=== PATIENT | female | born 1995 | race Two or more races ===

== ENCOUNTER 2023-07-27 00:20 | Emergency (ER) | payer MEDICAID, SELFPAY ==
[2023-07-27 00:28] VITALS: BP 118/81; PULSE 72; O2SAT 98
[2023-07-27 00:30] VITALS: BP 120/74; PULSE 72; RESP 18; TEMP 37.1; O2SAT 98; BMI 33.5
--- NOTE | 2023-07-27 00:39 | ECG_ITS ---
Test Reason : CHEST PAIN Blood Pressure : / mmHG Vent. Rate : 070 BPM Atrial Rate : 070 BPM P-R Int : 158 ms QRS Dur : 076 ms QT Int : 386 ms P-R-T Axes : 034 025 027 degrees QTc Int : 416 ms Normal sinus rhythm with sinus arrhythmia Normal ECG When compared with ECG of 15-OCT-2013 22:58, No significant change was found Referred By: Generic ED Physician Electronically Signed By:CRISTINE ELIAS
--- NOTE | 2023-07-27 00:44 | PC.NURSE ---
Pt reports a fever of 101 yesterday, no sick contact. Plan of care ongoing.
[2023-07-27 00:45] VITALS: BP 120/74; PULSE 69; RESP 12; TEMP 37.1; O2SAT 98
--- NOTE | 2023-07-27 00:50 | ED.CHESTPAIN ---
HPI - Chest Pain General Chief Complaint: Chest Pain Stated Complaint: CHEST PAIN Time Seen by Provider: 07/27/23 00:48 Source: patient Mode of arrival: ambulatory Limitations: no limitations History of Present Illness HPI narrative: Patient history of anxiety not feeling well for last few days thinking about her brother who was stabbed few months ago, increased anxiety lately, nonsmoker no diabetes or hypertension noticed headache for last 3 -4 days and not feeling well prior to arrival noticed sharp chest pain tonight while sitting asked her boyfriend to get some water felt lightheaded and passed out feel nauseated no vomiting headache is mostly on the right side with light sensitivity no history of migraines in the past no nausea no vomiting Related Data Previous Rx's Medication Instructions Recorded zwpgsnhvzw-yvxmlwmuctsqz-kvkqxopd 1 tab PO Q6H PRN haeadace #20 tabs 07/27/23 50 mg-325 mg-40 mg tablet lorazepam 1 mg tablet (Ativan) 1 mg PO BEDTIME PRN anxiety/sleep 07/27/23 #14 tabs Allergies Allergy/AdvReac Type Severity Reaction Status Date / Time aspirin [ASA] Allergy Intermediate HIVES Unverified 02/14/20 16:46 Review of Systems Review of Systems: Yes all other systems are reviewed and are negative [facility] Social History Social History Smoked in Last 30 Days: No Use of substances other than those prescribed or required for medical reasons: Yes Substance Use Type: Marijuana Advance Directives: No Advance Directives Information Provided: No Physical Exam Vital Signs: Vital Signs: Last Vital Signs Temp 98.8 F 07/27/23 00:45 Pulse 69 07/27/23 00:45 Resp 12 07/27/23 00:45 BP 120/74 07/27/23 00:45 Pulse Ox 98 07/27/23 00:45 O2 Del Method Room Air 07/27/23 00:45 BMI result Body Mass Index 33.5 Appearance: Alert. Oriented X3. No acute distress. Eyes: No pallor or icterus ENT: Pharynx normal. Oral Mucosa moist no temporal artery tenderness or scalp tenderness Neck: Normal inspection. Neck supple. CVS: Normal heart rate and rhythm. Pulses normal. Respiratory: No respiratory distress. Equal air entry bilateral, Abdomen: Soft and nontender. Bowel sounds are present, no mass palpable, Skin: Skin warm and dry. Normal skin color. Normal skin turgor. Extremities: No lower extremity edema. No calf tenderness Neuro: Oriented X 3. Medications Administered Discontinued Medications Generic Name Dose Route Start Last Admin Trade Name Freq PRN Reason Stop Dose Admin Acetaminophen/Butalbital/Caffeine 1 tab 07/27/23 01:59 07/27/23 02:10 Butalb/Acetamin/Caff 50/325/40 Tablet PO 07/27/23 02:00 1 tab ONCE ONE Administration Lorazepam 1 mg 07/27/23 01:59 07/27/23 02:10 Lorazepam 1 Mg Tablet PO 07/27/23 02:00 1 mg ONCE ONE Administration Medical Decision Making Medical Decision Making [facility] Narrative: Patient has atypical chest pain near-syncope episode likely from vasovagal low risk for PE low risk for coronary artery disease no family history of sudden that patient feel anxious and stressed out likely had vasovagal attack will check labs to r/o ACS Headache is likely migraine headache with light sensitivity and localized to the right side Differential Diagnosis Differential Diagnoses: The differential diagnosis associated with the presentation includes Lab Data [facility] Lab Attestation statement: I reviewed the patient's lab results. 07/27/23 00:50 07/27/23 00:50 Labs: Lab Results 07/27/23 07/27/23 07/27/23 Range/Units 00:50 02:09 02:10 WBC 9.0 (4.8-10.8) X10*3/uL RBC 4.59 (4.20-5.50) X10*6/uL Hgb 13.1 (12.0-16.0) g/dl Hct 38.9 (37.0-47.0) % MCV 84.7 (80.0-98.0) fL MCH 28.5 (27.0-33.0) pg MCHC 33.7 (31.0-35.0) g/dl RDW 12.6 (11.0-16.0) % Plt Count 189 (160-400) X10*3/uL MPV 10.6 (9.4-12.3) fL Immature Gran % (Auto) 0.1 (0.0-0.4) % Neut % (Auto) 57.1 (45-73) % Lymph % (Auto) 35.7 (20-40) % Eddy % (Auto) 6.2 (2-11) % Eos % (Auto) 0.6 (0-4) % Baso % (Auto) 0.3 (0-2) % Lymph # (Auto) 3.2 (1.2-4.9) X10*3/uL Eddy # (Auto) 0.6 (0.1-1.2) X10*3/uL Eos # (Auto) 0.1 (0.0-0.4) X10*3/uL Baso # (Auto) 0.0 (0.0-0.2) X10*3/uL Abs Immat Gran (auto) 0.01 (0.00-0.03) X10*3/uL Absolute Neuts (auto) 5.1 (2.0-8.3) x10*3/uL Absolute Nucleated RBC 0.000 (0.0-0.012) X10*3/uL Nucleated RBC % (auto) 0.0 (0.0-0.2) /100WBC Sodium 138 (135-145) mmol/L Potassium 3.7 (3.3-5.1) mmol/L Chloride 107 (96-108) mmol/L Carbon Dioxide 22 (22-29) mmol/L Anion Gap 13 (12-20) BUN 17 H (9-16) mg/dL Creatinine 0.73 (0.5-1.4) mg/dL Estim Creat Clear Calc 145.2 Estimated GFR > 60 Random Glucose 114 (60-115) mg/dL Calcium 9.5 (8.4-10.2) mg/dL Troponin I High Sens < 2.7 (<3.5-17.0) ng/L Urine Color Yellow Urine Appearance Clear Urine pH 6.0 (5.0-9.0) Ur Specific [place] >= 1.030 H (1.005-1.025) Urine Protein Negative (Neg-Trace) mg/dL Urine Glucose (UA) Negative (Negative) mg/dL Urine Ketones Trace (Negative) mg/dL Urine Blood Trace H (Negative) Urine Nitrite Negative (Negative) Ur Leukocyte Esterase Negative (Negative) Urine RBC 6-10 H (0-2) /HPF Urine WBC 0-5 (0-5) /HPF Ur Squamous Epith Cells 0-2 (0-2) /HPF Urine Bacteria None Seen (None Seen) Hyaline Casts 0-2 (0-2) /LPF Urine Test NEGATIVE (NEGATIVE) Independent Interpretation I performed an independent interpretation of an: EKG Interpretation: Normal sinus rhythm heart rate 70 beats per minute normal interval normal axis no acute ST T wave changes no ischemia Discharge Plan Discharge Clinical Impression: Atypical chest pain, Anxiety, Vasovagal syncope, Headache, migraine Patient Disposition: Home, Self-Care Instructions: Migraine Headache (ED), Syncope (ED), Noncardiac Chest Pain (ED), Anxiety (ED) Additional Instructions: Drink plenty of fluids Chest pain is not from the heart likely musculoskeletal Medicine for anxiety/sleep as prescribed Likely her migraine headache take medication as prescribed Prescriptions: New mopmwjixmb-pohyntbfwbcww-wodr 50-325-40 mg tablet 1 tab PO Q6H PRN (Reason: haeadace) Qty: 20 0RF lorazepam [Ativan] 1 mg tablet 1 mg PO BEDTIME PRN (Reason: anxiety/sleep) Qty: 14 0RF Interventions: ED Discharge Assessment Last Done: 07/27/23 02:37 Discharge Date/Time: 07/27/23 02:59
[2023-07-27 00:58] LABS: Basophils Percent Auto 0.3 % (0-2); Eosinophils Absolute Auto 0.1 X10*3/uL (0.0-0.4); Eosinophils Percent Auto 0.6 % (0-4); Hematocrit 38.9 % (37.0-47.0); Hemoglobin 13.1 g/dl (12.0-16.0); Imm Gran Abs Auto 0.01 X10*3/uL (0.00-0.03); Imm Gran Pct Auto 0.1 % (0.0-0.4); Lymphocytes Absolute Auto 3.2 X10*3/uL (1.2-4.9); Lymphocytes Percent Auto 35.7 % (20-40); MANUAL DIFF FLAG NO; Mean Corpuscular HGB Conc 33.7 g/dl (31.0-35.0); Mean Corpuscular Hemoglobin 28.5 pg (27.0-33.0); Mean Corpuscular Volume 84.7 fL (80.0-98.0); Mean Platelet Volume 10.6 fL (9.4-12.3); Monocytes Absolute Auto 0.6 X10*3/uL (0.1-1.2); Monocytes Percent Auto 6.2 % (2-11); Neutrophils Absolute Auto 5.1 x10*3/uL (2.0-8.3); Neutrophils Percent Auto 57.1 % (45-73); Platelet Count 189 X10*3/uL (160-400); Red Blood Count 4.59 X10*6/uL (4.20-5.50); Red Cell Distribution Width 12.6 % (11.0-16.0)
[2023-07-27 01:12] LABS: Anion Gap 13 (12-20); Blood Urea Nitrogen 17 mg/dL (9-16); Calcium 9.5 mg/dL (8.4-10.2); Carbon Dioxide 22 mmol/L (22-29); Chloride 107 mmol/L (96-108); Creatinine Clr Calc Pharmacy 145.2; Estimated Glomerular Filt Rate > 60; Glucose Random 114 mg/dL (60-115); Potassium 3.7 mmol/L (3.3-5.1); Sodium 138 mmol/L (135-145)
[2023-07-27 01:20] LABS: Troponin-I High Sensitivity < 2.7 ng/L (<3.5-17.0)
[2023-07-27] MEDS: Butalb/Acetamin/Caff 50/325/40 TABLET 1 TAB PO (02:10)
[2023-07-27] MEDS: LORazepam 1 MG TABLET PO (02:10)
--- NOTE | 2023-07-27 02:11 | PC.NURSE ---
Pt medicated per jul. Pts mom at bedside. Plan of care ongoing.
--- NOTE | 2023-07-27 02:14 | PC.NURSE ---
Pt requested and given water. Plan of care ongoing.
[2023-07-27 02:19] LABS: UPreg QC Valid YES; Urine Pregnancy NEGATIVE (NEGATIVE)
[2023-07-27 02:19] LABS: Appearance Urine Clear; Color Urine Yellow
[2023-07-27 02:20] LABS: Glucose Urine UA Negative (Negative); Leukocyte Esterase Urine Negative (Negative); Nitrite Urine Negative (Negative); Specific Gravity - Urine >= 1.030 (1.005-1.025); UMIC TRIGGER UACC YES; Urine Blood Trace (Negative); Urine Ketones Trace mg/dL (Negative); Urine Protein Negative (Neg-Trace)
[2023-07-27 02:22] LABS: Bacteria Urine None Seen (None Seen); Hyaline Casts Urine 0-2 /LPF (0-2); Squamous Epithelial Cell Urine 0-2 /HPF (0-2); WBC Urine 0-5 /HPF (0-5)
== END 2023-07-27 02:59 | disposition home or self-care (01) ==
PROVIDERS: Emergency Provider Internal Medicine
DX: R07.89 Other chest pain (principal); F41.9 Anxiety disorder, unspecified; R55 Syncope and collapse; G43.909 Migraine, unspecified, not intractable, without status migrainosus
CPT/HCPCS: 36415; 80048; 81001; 81025; 84484; 85025; 93005; 99283; 99285

== ENCOUNTER → 2023-07-27 00:39 | Outpatient (BNV) | payer MEDICAID, SELFPAY | PROVIDERS: Emergency Provider Internal Medicine; Visit Provider Internal Medicine | DX: R07.9 Chest pain, unspecified (principal) | CPT/HCPCS: 93010 ==

== ENCOUNTER 2024-12-09 20:09 | Emergency (ER) | payer MEDICAID, SELFPAY ==
--- NOTE | ~2024-12-09 | XR_ITS ---
CLINICAL HISTORY: trauma, pain 3 view left foot Comparison: None provided Findings: Bones intact. No dislocations. No arthritic change. No ankle effusion. No radiopaque foreign body. IMPRESSION: 1. No acute findings. This document has been electronically signed by: Denny Nino MD on 12/09/2024 21:23:32
[2024-12-09 20:26] VITALS: BP 110/70; PULSE 70; RESP 16; TEMP 36.7; O2SAT 100; BMI 35.5
--- NOTE | 2024-12-09 20:30 | ED.GENADULT ---
HPI - General Adult General Chief complaint: Extremity Injury, Lower Stated complaint: left foot in pain dumbbell fell on it Time Seen by Provider: 12/09/24 22:02 Source: patient Limitations: no limitations History of Present Illness ED Provider: Lizzeth Becker PA-C HPI narrative: 29-year-old female presents with left foot pain. Patient states a 5 lb dumbbell accidentally fell on her foot. Now with foot pain. Pain worse with walking. Related Data Previous Rx's ?Medication ?Instructions ?Recorded xitrzyskjk-efufeyqmqujfl-gdimfgnm 1 tab PO Q6H PRN haeadace #20 tabs 07/27/23 50 mg-325 mg-40 mg tablet lorazepam 1 mg tablet (Ativan) 1 mg PO BEDTIME PRN anxiety/sleep 07/27/23 #14 tabs Allergies Allergy/AdvReac Type Severity Reaction Status Date / Time aspirin (ASA) Allergy Intermediate HIVES Verified 12/09/24 20:28 Review of Systems Review of Systems: Yes all other systems are reviewed and are negative Constitutional: Constitutional: Denies fatigue and Denies fever(s) Musculoskeletal: Musculoskeletal: Reports arthralgias and Reports joint swelling Endocrine: Endocrine: Denies fatigue PMF Past Medical History Attestation statement: The following information was validated with the patient. Social History Social History Substance Use Type: Marijuana Advance Directives: No Advance Directives Information Provided: No Do you have a plan to hurt others: No Plan Physical Exam ED Vital Signs: Vital Signs - 24 hr 12/09/24 20:26 Temperature 98.1 F Pulse Rate 70 Respiratory Rate 16 Blood Pressure 110/70 Pulse Oximetry 100 Oxygen Delivery Method Room Air BMI result Body Mass Index 35.5 Const Other: Alert Orientation/consciousness: patient oriented x3 Resp Effort & Inspection: normal respiratory effort Cardio Other: Normal peripheral perfusion Skin Other: Warm dry no rash Neuro General: patient oriented x3, gait normal, no focal motor deficits and CN's II-XI intact bilaterally Extrem Other: Mild swelling over dorsum of the foot, no ecchymosis no deformity Psych Other: Calm and cooperative Course Course Course Narrative: Medical screening exam performed. Please refer to detailed history, exam, evaluation, and management by primary provider. 29-year-old female dropped a 5 lb dumbbell on her left foot over the 5th metatarsal. Medical Decision Making Medical Decision Making [facility] Narrative: 29-year-old female presents with left foot pain. Patient states a 5 lb dumbbell accidentally fell on her foot. Now with foot pain. Pain worse with walking. No chronic issues History: Per patient I have considered the following differential diagnoses: Fracture, dislocation, contusion, sprain Plan: X-ray ordere from triage it is negative. We will send with crutches. I have independently reviewed the following tests: X-ray left foot:Findings: Bones intact. No dislocations. No arthritic change. No ankle effusion. No radiopaque foreign body. IMPRESSION: 1. No acute findings. Discharge Plan Discharge Clinical Impression: Contusion of foot, left Patient Disposition: Home, Self-Care Instructions: Foot Contusion (ED), P.R.I.C.E. Treatment (ED) Additional Instructions: The x-ray of your foot was negative for fracture or dislocation, you have a contusion. See home care instructions. Bear weight as tolerated use the crutches to aid in ambulation. Follow up with primary care as needed. Prescriptions: No Action wqmpyggrab-fqrgbhuiobwyh-rbwt 50-325-40 mg tablet 1 tab PO Q6H PRN (Reason: haeadace) Qty: 20 0RF lorazepam [Ativan] 1 mg tablet 1 mg PO BEDTIME PRN (Reason: anxiety/sleep) Qty: 14 0RF Stand Alone Forms: Work/School Release Print Language: Estonian
[2024-12-09 22:46] VITALS: BP 135/86; PULSE 78; RESP 16; TEMP 36.7; O2SAT 99
== END 2024-12-09 22:48 | disposition home or self-care (01) ==
PROVIDERS: Emergency Provider Emergency Medicine; PCP Family Medicine
DX: S90.32XA Contusion of left foot, initial encounter (principal); M79.672 Pain in left foot; X58.XXXA Exposure to other specified factors, initial encounter; Y29.XXXA Contact with blunt object, undetermined intent, initial encounter; Y93.B1 Activity, exercise machines primarily for muscle strengthening; Y92.89 Other specified places as the place of occurrence of the external cause; Y99.8 Other external cause status
CPT/HCPCS: 73630; 99283

== ENCOUNTER → 2024-12-09 20:30 | Outpatient (BNV) | payer MEDICAID, SELFPAY | PROVIDERS: PCP Family Medicine; Visit Provider Radiology Diagnostic Radiology | DX: M79.672 Pain in left foot (principal); S99.922A Unspecified injury of left foot, initial encounter | CPT/HCPCS: 73630 ==

== ENCOUNTER 2025-02-06 19:28 | Emergency (ER) | payer MEDICAID, SELFPAY ==
[2025-02-06 19:36] VITALS: BP 114/69; PULSE 90; RESP 17; TEMP 36.8; O2SAT 98; BMI 38.0
--- NOTE | 2025-02-06 19:40 | ED_ITS ---
HPI - General Adult General Chief complaint: Headache Stated complaint: severe headaches since yesterday Time Seen by Provider: 02/06/25 20:56 History of Present Illness ED Provider: Jose STANLEY narrative: The patient is a 29-year-old female who is generally in good health. She has a history of a but no other significant medical or surgical history. She is on no medications. The patient says that yesterday afternoon at around 2:00 p.m. she developed a headache that she says began ?as a regular headache. ? The headache persisted throughout the afternoon and evening and when she woke up this morning the headache was still present and considerably worse. Nevertheless she went to work and tried to work for a while but ultimately left work early because of the headache. She had some associated nausea. She also feels that the headache has become more centered around her left eye. She has not had any fever. No neck stiffness. She says that she has had 1 previous similar headache. She is quite certain she is not because she is not sexually active. The patient says that she gets hives with aspirin but can tolerate ibuprofen. Related Data Previous Rx's ?Medication ?Instructions ?Recorded bvfkjnefmc-lpwscztyosjjc-efesdsma 1 tab PO Q6H PRN hae adace #20 tabs 07/27/23 50 mg-325 mg-40 mg tablet lorazepam 1 mg tablet (Ativan) 1 mg PO BEDTIME PRN anx iety/sleep 07/27/23 #14 tabs Allergies Allergy/AdvReac Type Severity Reaction Status Date / Time aspirin (ASA) Allergy Intermediate HIVES Verified 02/06/25 19:39 Review of Systems Review of Systems: Yes all other systems are reviewed and are negative [facility] Social History Social History Smoked in Last 30 Days: No Use of substances other than those prescribed or required for medical reasons: No Substance Use Type: Marijuana Advance Directives: No Advance Directives Information Provided: No Do you have a plan to hurt others: No Plan Patient : No Physical Exam ED Vital Signs: Vital Signs - 24 hr 02/06/25 19:36 02/06/25 21:01 02/06/25 22:13 Temperature 98.2 F 98.0 F Pulse Rate 90 61 78 Respiratory Rate 17 18 18 Blood Pressure 114/69 115/78 103/69 Pulse Oximetry 98 99 100 Oxygen Delivery Method Room Air Room Air Room Air BMI result Body Mass Index 38.0 Const Other: The patient is a 29-year-old woman who is awake and alert. She was covering her eyes with the arm lying on the stretcher when I first encountered her. She was pleasant cooperative and did not seem in acute distress. Orientation/consciousness: patient oriented x3 HENMT Other: The patient has symmetrical. Mucous membranes moist. Eyes Other: Pupils are round equal, conjunctivae are clear, extraocular movements intact. Neck Neck: Yes normal visual inspection, Yes full ROM and Yes no meningeal signs Resp Effort & Inspection: normal respiratory effort Auscultation: clear to auscultation bilaterally Cardio Rate: regular rate Rhythm: regular rhythm Heart sounds: S1 normal heart sound present and S2 normal heart sound present GI Other: Abdomen is soft and nontender Skin Other: The skin is dry and unremarkable. General skin exam: no rashes or lesions noted Neuro Other: The patient has an entirely normal mental status and nontoxic demeanor. Per neck is entirely supple. General: patient oriented x3, tone normal, moves all extremities, no meningeal signs, no focal motor deficits and CN's II-XI intact bilaterally Extrem Other: No peripheral edema Course Course Course Narrative: Rapid medical examination performed in triage by La Blackman PA-C. Patient is a 29 year old assigned female at presenting to the emergency department with a headache. Detailed physical exam and review of systems are deferred to the market director. Labs and swabs ordered. Patient placed back in the waiting room pending room availability and results. Medications Administered Discontinued Medications Generic Name Dose Route Start Last Admin Trade Name Normanq PRN Reason Stop Dose Admin Sodium Chloride 1,000 mls @ 999 mls/hr 02/06/25 21:15 02/06/25 22:10 Ns IV 02/06/25 22:15 Infused .Q1H1M PEBBLES Infusion Ketorolac Tromethamine 15 mg 02/06/25 21:04 02/06/25 21:13 Ketorolac Tromethamine 15 Mg/Ml Vial IVPUSH 02/06/25 21:05 15 mg ONCE ONE Administration Metoclopramide HCl 10 mg 02/06/25 21:04 02/06/25 21:16 Metoclopramide Hcl 10 Mg/2 Ml Vial IVPUSH 02/06/25 21:05 10 mg ONCE ONE Administration Medical Decision Making Medical Decision Making [facility] Narrative: The patient is a 29-year-old female who presents with a headache that started yesterday. She describes a headache which is not a thunderclap headache. She looks extremely well with a very supple neck. She also describes a previous history of a similar headache. Clinically my suspicion was this is probably a migraine type headache. I did not have any significant suspicion for subarachnoid hemorrhage or meningitis. She was treated symptomatically with a dose of ketorolac and metoclopramide. Also IV fluids. After treatment she felt much better. Her headache resolved. She felt well enough for discharge. She should follow up with her PCP. Discharge Plan Discharge Clinical Impression: Headache Patient Disposition: Home, Self-Care Instructions: Migraine Headache (ED) Additional Instructions: I suspect that this headache was probably a migraine headache. Your improved with medications which usually help migraine headaches. You received a dose of ketorolac (Toradol) and also metoclopramide (Reglan). Please rest and take it easy tonight and tomorrow. Please plan on following up sometime in the next several weeks with your regular doctor to discuss this episode further. Return to the emergency room if significantly worse. Prescriptions: No Action jcyylozubx-rmgxbbbvkhvmn-dftl 50-325-40 mg tablet 1 tab PO Q6H PRN (Reason: haeadace) Qty: 20 0RF lorazepam [Ativan] 1 mg tablet 1 mg PO BEDTIME PRN (Reason: anxiety/sleep) Qty: 14 0RF Referrals: Scarlett Wills MD [Primary Care Provider, Medical] Stand Alone Forms: Work/School Release Print Language: Ukrainian
[2025-02-06 21:01] VITALS: BP 115/78; PULSE 61; RESP 18; TEMP 36.7; O2SAT 99
--- OUTSIDE RECORDS SUMMARY | 2025-02-06 21:25 | XMS_ITS | Clinical Summary ---
Author Organization [employer] Address [address] [place] [address] [address] [place] [address] Care Team Providers Care Pleat Patternmaker Name Role Phone Scarlett Wills MD Primary Care Provider [phone] Allergies Active Allergy Reactions Criticality Noted Date Comments Aspirin 10/28/2016 Medications tranexamic acid (Lysteda) 650 MG tablet tablet Take 2 tablets by mouth every 8 (eight) hours. 11/10/2016 Active norgestrel-ethi nyl estradiol (Low-osgestrel, Cryselle) 0.3-30 MG-MCG tablet Take 1 tablet by mouth in the morning. Active hydrOXYzine HCl (Atarax) 10 MG tabletIndicatio ns:Bipolar 2 disorder (CMS/HCC) Take 1-2 tablets (10-20 mg) by mouth every 6 (six) hours if needed for anxiety. 100 tablet 2 08/30/2022 Active OLANZapine (ZyPREXA) 7.5 MG tabletIndicatio ns:Bipolar 2 disorder (CMS/HCC) Take 1 tablet (7.5 mg) by mouth at bedtime. 90 tablet 1 03/25/2023 Active Active Problems Problem Noted Date Diagnosed Date Bipolar 2 disorder 05/11/2022 Assessment & Plan (08/30/2022 2:31 PM EDT): Pt gives a compelling history for this: Periods of sadness, low mood, excess fatigue; and other discrete periods of excessive energy, irritability. Fam hx BPD (Mother). Doing much better. No hallucinations. Anxiety improved. Mood swings still not completely controlled, and racing thoughts at bedtime. Will increase to Olanzapine 7.5 mg at bedtime. F/U with therapist and with me in 2 months. She agrees with the plan. Assessment & Plan (06/22/2022 9:46 AM EST): Pt gives a compelling history for this: Periods of sadness, low mood, excess fatigue; and other discrete periods of excessive energy, irritability. Fam hx BPD (Mother). Doing much better. No hallucinations. Anxiety improved. No med changes at this time. Reviewed sleep hygiene. F/U with therapist and with me in 6-8 weeks. She agrees with the plan. Assessment & Plan (05/11/2022 9:21 AM EST): Pt gives a compelling history for this: Periods of sadness, low mood, excess fatigue; and other discrete periods of excessive energy, irritability. Fam hx BPD (Mother). Having mild mood-congruent hallucinations (door knocking, sensation of someone watching her). Not sleeping as well. Will increase to Zyprexa 5 mg at bedtime. Cautioned about possible daytime sedation. Continue Hydroxyzine 10 mg to take 1- 2 tablets as needed for anxiety or panic attack. She has not been able to reconnect with her therapist, we will refer again. Given the [facility] suicide hotline information. F/U with me in approx 1 month. She agrees with the plan. PTSD (post-traumatic stress disorder) 05/11/2022 Assessment & Plan (05/11/2022 9:22 AM EST): with trauma history (did not explore details). Presented with nightmares, flashbacks, hypervigilance, avoidant behaviors. Excessive and frequent menstruation 11/03/2016 Iron deficiency anemia 11/03/2016 Obesity (BMI 30-39.9) 11/03/2016 Encounters Date Type Department Care Team Description 12/09/2024 Orders Only [facility] External Provider, [facility] from Last 3 Months Immunizations Immunization Administration Dates Next Due DTaP 01/06/1998, 6,07/05/1994,04/02,01/29/1994 HPV, Quadrivalent 07/07/2009,02/14/2009,09/18/20 08 Hep A, ped/adol, 2 dose 11/27/2012 Hep B, Adolescent or Pediatric 07/05/1994,1993,01/29/1994 IPV 01/06/1998, 5,04/02/1994,01/29 Influenza injectable quadriv alent preservative free 04/16/2021 Influenza, IIV3, injectable 02/10/2011 Influenza, Split (incl. sterling fied surface antigen) 07/11/2012 MMR 11/13/1996,02/07/1995 Meningococcal MCV4P ACYW-135 02/10/2011,02/23/20 06 Pfizer Covid-19 Vaccine 12+ 03/05/2021, Tdap 02/22/2006 Varicella 02/14/2009,03/02/1999 Social History Tobacco Use Types Packs/Day Years Used Date Smoking Tobacco: Never Smokeless Tobacco: Never Tobacco Cessation:Counseling Given: Not Answered Depression Answer Date Recorded Patient Health Questionnaire-9 Score 6 08/30/2022 Housing Stability Answer Date Recorded What is your housing situation today? I have emily kearns 03/06/[address] you li ve. Do you have problems with any of the following? Mold 03/06/2023 Food Insecurity Answer Date Recorded Within the past 12 months, y ou worried that your food would run out before you got money to buy more: Never True 03/25/2023 Within the past 12 months,th e food you bought just didn't last and you didn't have enough money to get more: Never True Transportation Answer Date Recorded In the past 12 months, has l ack of transportation kept you from medical appts, meetings, work or from getting things needed for daily living? No 03/25/2023 Utilities Answer Date Recorded In the past 12 months, has t he electric, gas, oil or water company threatened to shut off services in your home? No 03/25/2023 Depression Answer Date Recorded Patient Health Questionnaire-2 Score 1 08/30/2022 Comments Unknown Sex and Gender Information Value Date Recorded Sex Assigned at Female 03/29/2022 10:15 AM EDT Legal Sex Female 10:15 AM EDT Gender Identity Female 03/29/2022 10:15 AM EDT Sexual Orientation Straight 03/29/2022 10 :15 AM EDT Last Filed Vital Signs Vital Sign Reading Time Taken Comments Blood Pressure 110/66 07/23/2022 9:02 AM EST Pulse 74 07/23/2022 9:02 AM EST Temperature 36.8 C (98.2 F) 07/23/2022 9:02 AM EST Respiratory Rate 18 07/23/2022 9:02 AM EST Oxygen Saturation 98% 07/23/2022 9:02 AM EST Inhaled Oxygen Concentration - - Weight 103 kg (228 lb) 07/23/2022 9:02 AM EST Height 167.6 cm (5' 6 ) 07/23/2022 9:02 AM EST Body Mass Index 36.8 07/23/2022 9:02 AM EST Plan of Treatment Health Maintenance Due Date Last Done Comments HIV Screening 1993 Lipid Panel 1993 Disability Screening 1993 Alcohol/Substance Use Screening 2005 Family Planning (PISQ) 2008 Hepatitis C Screening 12/08/2011 Hepatitis A Vaccines (2 of 2 - 2-dose series) 05/30/2013 11/27/2012 DTaP/Tdap/Td Vaccines (7 - Td or Tdap) 02/23/2016 02/22/2006, 01/06/1998, 04/19/1996, Additional history exists SDOH Screening 05/11/2023 05/11/2022 Cervical Cancer Screening 07/06/2023 HPV/Cotest 07/06/2023 Pap Smear 07/06/2023 07/06/2022 Tobacco Screening 07/23/2023 07/23/2022 Depression Screening 08/31/2023 08/30/2022, 08/31/19 23 COVID-19 Vaccine ( season) 2025 08/26/2021, 03/05/2021, 02/12/2021 Influenza Vaccine (#1) 2025 , 07/11/2012, 02/10/2011 Zoster Vaccines (1 of 2) 12/08/2043 RSV Patients and Patients Aged 60 years or older (1 - 1-dose 75+ series) 2068 Hepatitis B Vaccines Completed 07/05/1994, 04/12/1994, 01/29/1994 IPV Vaccines Completed 01/06/1998, 10/1994, 04/02/1994, Additional history exists HPV Vaccines Completed 07/07/2009, 01/28, 02/15/2008 Meningococcal Vaccine Completed 02/10/2011, 006 HIB Vaccines Aged Out No longer eligi ble based on patient's age to complete this topic Meningococcal B Vaccine Aged Out No l onger eligible based on patient's age to complete this topic Pneumococcal Vaccine: Pediatrics (0 to 5 Years) and At-Risk Patients (6 to 49) Years Aged Out No longer eligible based on patient's age to complete this topic RSV under 20 months Aged Out No longe r eligible based on patient's age to complete this topic Rotavirus Vaccines Aged Out No longer eligible based on patient's age to complete this topic Procedures Procedure Name Priority Date/Time Associated Diagnosis Comments XR FOOT 3+ VIEWS LEFT Routine 12/09/2024 9:23 PM EDT HM PAP/HPV Routine 07/06/2022 12:00 AM EST from Last 3 Months or Most Recently Relevant to Health Maintenance Results * XR Foot 3+ Views Left (12/09/2024 9:23 PM EDT) Anatomical Region Laterality Modality Lower Extremities, Foot Left Radiogra phic Imaging 12/09/2024 9:23 PM EDT Narrative 12/09/2024 9:24 PM EDT [place] [address] XRay Report Signed Patient: Xin Lira MR#: [id number] 0 : 1995 Acct:[id number] Age/Sex: 29 / F ADM Date: 12/09/24 Loc: HO.ED Attending Dr: Ordering Physician: Nain Yeager Date of Service: 12/09/24 Procedure(s): XR foot LT min 3V Accession Number(s): [id number] cc: Nain Yeager; Scarlett Wills MD CLINICAL HISTORY: trauma, pain 3 view left foot Comparison: None provided Findings: Bones intact. No dislocations. No arthritic change. No ankle effusion. No radiopaque foreign body. IMPRESSION: 1. No acute findings. This document has been electronically signed by: Denny Nino MD on 12/09/2024 21:23:32 Dictated By: Denny Nino MD Signed By: <Electronically signed by Dneny Nino MD in [place]> 12/09/242123 DD/ 22 TD/TT: 12/09/242122 Sanitation Manager: Procedure Note Donotuseinterpreter, Image - 12/10/[address] [address] XRay Report Signed Patient: Xin LiraMR#: [id number] 0 : 1995Acct:[id number] Age/Sex: 29 / FADM Date: 12/09/24 Loc: .ED Attending Dr: Ordering Physician: Nain Yeager Date of Service: 12/09/24 Procedure(s): XR foot LT min 3V Accession Number(s): [id number] cc: Nain Yeager; Scarlett Wills MD CLINICAL HISTORY: trauma, pain 3 view left foot Comparison: None provided Findings: Bones intact. No dislocations. No arthritic change. No ankle effusion. No radiopaque foreign body. IMPRESSION: 1. No acute findings. This document has been electronically signed by: Denny Nino MD on 12/09/2024 21:23:32 Dictated By: Denny Nino MD Signed By: <Electronically signed by Denny Nino MD in [place]> 12/09/242123 DD/ 22 TD/TT: 12/09/242122 Sanitation Manager: [facility] External Provider IMG XR PROCEDURES Edited Result - Final * Hm Pap Smear (07/06/2022 12:00 AM EST) Historical Provider HEALTH MAINTENANCE Final Result from Last 3 Months or Most Recently Relevant to Health Maintenance Insurance [facility] [place] [address] [place] [id number] , [place] [id number] Care Teams Pleat Patternmaker Relationship Specialty Start Date End Date Scarlett Wills MD [address] [place] [id number] PCP - General Family Medicine 05/14/21
--- OUTSIDE RECORDS SUMMARY | 2025-02-06 21:25 | XMS_ITS | Encounter Summary ---
Author Organization [employer] Address [address] [place] [address] 7[address] [place] [address] Care Team Providers Care Cut Out Worker Name Role Phone Scarlett Wills MD Primary Care Provider [phone] Encounter Details Date Type Department Care Team (Late st Contact Info) Description 12/31/2022 Orders Only [facility] [address] [place] [address] Jessi Saul Social History Tobacco Use Types Packs/Day Years Used Date Smoking Tobacco: Never Smokeless Tobacco: Never Depression Answer Date Recorded Patient Health Questionnaire-9 Score 6 08/30/2022 Depression Answer Date Recorded Patient Health Questionnaire-2 Score 1 08/30/2022 Comments Unknown Sex and Gender Information Value Date Recorded Sex Assigned at Female 03/29/2022 10:15 AM EDT Legal Sex Female 10:15 AM EDT Gender Identity Female 03/29/2022 10:15 AM EDT Sexual Orientation Straight 03/29/2022 10 :15 AM EDT documented as of this encounter Plan of Treatment Not on file documented as of this encounter Procedures Procedure Name Priority Date/Time Associated Diagnosis Comments CBC WITH AUTO DIFFERENTIAL Routine 07/27/2023 12:50 AM EST HM PAP/HPV Routine 07/06/2022 12:00 AM EST documented in this encounter Results * CBC auto differential (07/27/2023 12:50 AM EST) White Blood Count 9.0 4.8 - 10.8 X10*3/uL [facility] Red Blood Count 4.59 4.20 - 5.50 X10*6/uL [facility] Hemoglobin 13.1 12.0 - 16.0 g/dl [facility] Hematocrit 38.9 37.0 - 47.0 % [facility] Mean Corpuscular Volume 84.7 80.0 - 98.0 fL [facility] Mean Corpuscular Hemoglobin 28.5 27.0 - 33.0 pg [facility] Mean Corpuscular HGB Conc 33.7 31.0 - 35.0 g/dl [facility] Red Cell Distribution Width 12.6 11.0 - 16.0 % [facility] Platelet Count 189 160 - 400 X10*3/uL [facility] Mean Platelet Volume 10.6 9.4 - 12.3 fL [facility] Neutrophils Percent Auto 57.1 45 - 73 % [facility] Imm Gran Pct Auto 0.1 0.0 - 0.4 % [facility] Lymphocytes Percent Auto 35.7 20 - 40 % [facility] Monocytes Percent Auto 6.2 2 - 11 % [facility] Eosinophils Percent Auto 0.6 0 - 4 % [facility] Basophils Percent Auto 0.3 0 - 2 % [facility] NRBC Pct Auto 0.0 0.0 - 0.2 /100WBC [facility] Neutrophils Absolute Auto 5.1 2.0 - 8.3 x10*3/uL [facility] Imm Gran Abs Auto 0.01 0.00 - 0.03 X10*3/uL [facility] Lymphocytes Absolute Auto 3.2 1.2 - 4.9 X10*3/uL [facility] Monocytes Absolute Auto 0.6 0.1 - 1.2 X10*3/uL [facility] Eosinophils Absolute Auto 0.1 0.0 - 0.4 X10*3/uL [facility] Basophils Absolute Auto 0.0 0.0 - 0.2 X10*3/uL [facility] NRBC Abs Auto 0.000 0.0 - 0.012 X10*3/uL [facility] 07/27/2023 12:5 0 AM EST 07/27/2023 12:56 AM EST us Generic External Data Provider LAB BLOOD ORDERAB LES Final Result [facility] [address] [place] [address] [phone] * Hm Pap Smear (07/06/2022 12:00 AM EST) us Historical Provider HEALTH MAINTENANCE Final Result documented in this encounter Visit Diagnoses Not on filedocumented in this encounter Additional Health Concerns Assessment Noted Time PHQ-9 Depression Total Score: 6 08/31/19 23 2:00 PM EDT documented as of this encounter Care Teams Cut Out Worker Relationship Specialty Start Date End Date Scarlett Wills MD [address] [place] [id number] PCP - General Family Medicine 05/14/21 documented as of this encounter
--- NOTE | 2025-02-06 21:32 | PC.NURSE ---
pt a&ox4, respirations even and unlabored. pt reports x3 days of headache, photosensitivity and nausea. pt reports taking tylenol with no relief. 20g placed in left ac, medicated per mar and fluids administering
[2025-02-06 22:13] VITALS: BP 103/69; PULSE 78; RESP 18; O2SAT 100
[2025-02-06 22:41] VITALS: BP 103/69; PULSE 78; RESP 18; TEMP 36.7; O2SAT 100
== END 2025-02-06 22:42 | disposition home or self-care (01) ==
PROVIDERS: Emergency Provider Emergency Medicine; PCP Family Medicine
DX: R51.9 Headache, unspecified (principal)
CPT/HCPCS: 96361; 96374; 96375; 99284; 99285; J1885; J2765